=== PATIENT | male | born 1965 | race Caucasian/White ===

== ENCOUNTER 2020-06-01 19:44 | Emergency (ER) | payer OTHER, SELFPAY ==
[2020-06-01 19:55] VITALS: BP 145/81; PULSE 81; RESP 18; TEMP 36.1; O2SAT 97; BMI 26.1
--- NOTE | 2020-06-01 20:27 | ED_ITS ---
HPI - Skin/Abscess/Foreign Bdy General Chief complaint: Skin/Abscess/Foreign Body Stated complaint: rash Time Seen by Provider: 06/01/20 20:22 Source: patient Mode of arrival: ambulatory Limitations: no limitations History of Present Illness HPI narrative: Patient presents to ED for generalized itchy rash since yesterday. Patient does not have any known allergies. Patient states he was staying at a hotel last night and this may be due to the new soap or lotion. Patient states he rash on upper extremities, chest, and lower extremities. Patient denies any swelling of lips, shortness of breath, swelling of tongue, or chest pain. Patient denies any fever or chills. Related Data Previous Rx's Medication Instructions Recorded diphenhydramine HCl [Benadryl] 25 mg PO TID PRN #30 cap 06/01/20 famotidine [Pepcid] 20 mg PO BID #20 tab 06/01/20 prednisone 40 mg PO DAILY #10 tab 06/01/20 Allergies Allergy/AdvReac Type Severity Reaction Status Date / Time naproxen Allergy Unknown rash Verified 06/01/20 20:00 PT does not remeber allergy Allergy Unknown Unknown Uncoded 06/01/20 20:00 Review of Systems Review of Systems: itchy rash Yes all other systems are reviewed and are ne gative Constitutional: Constitutional: Reports as per HPI and Reports no additional constitutional complaints Eyes: Eyes: Reports as per HPI and Reports no additional eye complaints ENT: Reports system reviewed and no additional complaints, except as documented and Reports as per HPI Cardiovascular: Cardiovascular: Reports as per HPI and Reports no additional cardiovascular complaints Respiratory: Respiratory: Reports as per HPI and Reports no additional respiratory complaints Gastrointestinal: Gastrointestinal: Reports as per HPI and Reports no additional gastrointestinal complaints Genitourinary: Genitourinary: Reports no additional male genitourinary complaints and Reports as per HPI Musculoskeletal: Musculoskeletal: Reports no additional musculoskeletal complaints and Reports as per HPI Neurologic: Reports system reviewed and no additional complaints, except as documented and Reports as per HPI Psychiatric: Psychiatric: Reports no additional psychiatric complaints and Reports as per HPI [facility] Social History Social History Advance Directives: No Advance Directives Information Provided: Yes Physical Exam Vital Signs: Vital Signs: Last Vital Signs Temp 96.9 F 06/01/20 19:55 Pulse 81 06/01/20 19:55 Resp 18 06/01/20 19:55 BP 145/81 H 06/01/20 19:55 Pulse Ox 97 06/01/20 19:55 Body Mass Index 26.1 Const: General: cooperative, healthy appearing, comfortable, no acute distress, well developed, awake and Physically active Orientation/consciousness: patient oriented x3 HENMT: Other: negative for any facial swelling, lip swelling, tongue swelling, or uvula swelling. Patient is speaking in full sentences. Head: Yes normal to inspection, Yes No palpable skull fracture present, Yes normocephalic, Yes atraumatic, No Acrocyanosis present, No Meléndez's sign, No contusion, No cranial bruits, No hematoma, No laceration, No palpable skull fracture, No raccoon eyes, No scalp tenderness, No Temporal artery tenderness present and No periorbital ecchymosis Eyes: General: appearance normal, both eyes and all related structures Neck: Neck: Yes normal visual inspection, Yes full ROM, Yes no lymphadenopathy, Yes no meningeal signs, Yes trachea midline, Yes supple and No tender Chest: Other: Positive for uticaria rash Chest palpation & inspection: normal inspection of the chest and normal palpation of entire chest wall Resp: Effort & Inspection: normal respiratory effort and able to speak in complete sentences Auscultation: clear to auscultation bilaterally Cardio: Jugular venous distension: no JVD Heart sounds: S1 normal heart sound present and S2 normal heart sound present GI: Other: uticarial rash Inspection: Yes normal to inspection and No abdominal wall ecchymosis Palpation (GI): Soft to palpation, not firm, nontender, no guarding and not rigid : General: No CVA tenderness and Yes no CVA tenderness Back/Spine/Pelvis: Back: no CVA tenderness, No CVA tenderness and No back tenderness Skin: Other: positive for uticaria rash on chest, abdomen, upper extremities and lower extremities. Neuro: General: patient oriented x3, gait normal, no meningeal signs and CN's II-XI intact bilaterally Cranial nerves: Yes CN's II-XII intact bilaterally Extrem: General: Yes normal to inspection and Yes full ROM Psych: Appearance: grossly normal, well kempt and not disheveled Course Course Course Narrative: History physical exam indicated to uticarial rash. patient has allerigc reaction Reevaluation(s) Reevaluation #1: Patient is driving. Patient will be charged Benadryl, prednisone, Pepcid MDM - Skin/Abscess/Foreign Bdy MDM Narrative Medical decision making narrative: Uticaria rash Discharge Plan Discharge Clinical Impression: Urticarial rash, Allergic reaction Patient Disposition: Home, Self-Care Instructions: General Allergic Reaction (ED) Additional Instructions: return to the ED immediately for chest pain, shortness of breath, swelling of lips, swelling of tongue, fever, chills, sensation of throat closing, or any other concerning symptoms. Prescriptions: New diphenhydramine HCl [Benadryl] 25 mg capsule 25 mg PO TID PRN (Reason: allergic reaction) Qty: 30 RF: 0 prednisone 20 mg tablet 40 mg PO DAILY Qty: 10 RF: 0 famotidine [Pepcid] 20 mg tablet 20 mg PO BID Qty: 20 RF: 0 Referrals: Siobhan Estrada MD [Primary Care Provider] - 2 days (Allergic reaction) Interventions: ED Discharge Assessment Last Done: 06/01/20 21:11 Discharge Date/Time: 06/01/20 21:13 Print Language: Bhutanese
== END 2020-06-01 21:13 | disposition home or self-care (01) ==
PROVIDERS: Emergency Provider Internal Medicine; PCP Internal Medicine
DX: L50.0 Allergic urticaria (principal); Z79.899 Other long term (current) drug therapy
CPT/HCPCS: 99283

== ENCOUNTER 2022-10-20 11:19 | Outpatient (REF) | payer OTHER, SELFPAY ==
[2022-10-20 11:41] LABS: MANUAL DIFF FLAG NO
[2022-10-20 12:10] LABS: Basophils Absolute Auto 0.1 X10*3/uL (0.0-0.2); Basophils Percent Auto 0.6 % (0-2); Eosinophils Absolute Auto 0.1 X10*3/uL (0.0-0.4); Eosinophils Percent Auto 1.5 % (0-4); Hematocrit 49.7 % (42.0-52.0); Hemoglobin 16.7 g/dl (14.0-18.0); Imm Gran Abs Auto 0.02 X10*3/uL (0.00-0.03); Imm Gran Pct Auto 0.2 % (0.0-0.4); Lymphocytes Absolute Auto 2.9 X10*3/uL (1.2-4.9); Lymphocytes Percent Auto 33.1 % (20-40); Mean Corpuscular HGB Conc 33.6 g/dl (31.0-36.0); Mean Corpuscular Hemoglobin 30.1 pg (27.0-33.0); Mean Corpuscular Volume 89.5 fL (80.0-98.0); Mean Platelet Volume 10.3 fL (9.4-12.4); Monocytes Absolute Auto 0.5 X10*3/uL (0.1-1.2); Monocytes Percent Auto 5.7 % (2-11); Neutrophils Absolute Auto 5.1 x10*3/uL (2.0-8.3); Neutrophils Percent Auto 58.9 % (45-73); Platelet Count 297 X10*3/uL (160-400); Red Blood Count 5.55 X10*6/uL (4.60-5.80); Red Cell Distribution Width 12.8 % (11.0-16.0); White Blood Count 8.6 X10*3/uL (4.8-10.8)
[2022-10-20 13:13] LABS: Alanine Aminotransferase 24 U/L (0-40); Albumin Level 4.2 g/dL (3.5-5.0); Alkaline Phosphatase 108 U/L (39-117); Anion Gap 11 (12-20); Aspartate Amino Transferase 17 U/L (5-37); Bilirubin Total 0.6 mg/dL (0.0-1.0); Blood Urea Nitrogen 14 mg/dL (9-16); Calcium 9.4 mg/dL (8.4-10.2); Carbon Dioxide 29 mmol/L (22-29); Chloride 104 mmol/L (96-108); Cholesterol 223 mg/dL; Estimated Glomerular Filt Rate > 60; Glucose Random 90 mg/dL (60-115); HDL Cholesterol 37 mg/dL; LDL Cholesterol Calculated 157 mg/dl; Sodium 139 mmol/L (135-145); TSH reflex Free T4 1.04 uIU/mL (0.32-4.0); Total Protein 7.2 g/dL (6.5-8.0); Triglycerides 147 mg/dL
[2022-10-20 13:18] LABS: Estimated Average Glucose 108 mg/dL; Hemoglobin A1c % 5.4 %
== END 2022-10-20 11:20 | disposition home or self-care (01) ==
LOC: HO.LAB 11:19
PROVIDERS: Visit Provider Nurse Practitioner Family
DX: E78.00 Pure hypercholesterolemia, unspecified (principal); F17.200 Nicotine dependence, unspecified, uncomplicated; Z13.1 Encounter for screening for diabetes mellitus; Z13.0 Encounter for screening for diseases of the blood and blood-forming organs and certain disorders involving the immune mechanism; Z13.21 Encounter for screening for nutritional disorder; Z13.29 Encounter for screening for other suspected endocrine disorder
CPT/HCPCS: 36415; 80053; 80061; 82306; 83036; 84443; 85025

== ENCOUNTER 2023-01-12 15:18 | Outpatient (AMB) | payer OTHER, SELFPAY ==
--- NOTE | 2023-01-12 15:29 | A.OFFPC_ITS ---
Vital Signs 01/12/23 15:35 01/12/23 16:10 Height 5 ft 7 in Weight 194 lb BMI 30.4 BP 140/80 H 128/80 Blood Pressure Location Rt brachial Lt brachial Position Sitting Sitting Pulse 80 Pulse Source Pulse Oximeter Pulse Oximetry (%) 98 Intake Visit Reasons: Annual PE Intake Note: pt is here for annual exam Rehab Office Coordinator Required: No Accompanied by: Self / Same As Patient Allergies naproxen Allergy (Unknown, Verified 01/12/23 15:29) rash PT does not remeber allergy Allergy (Unknown, Uncoded 01/12/23 15:29) Unknown Medication List - Last Reconciled 01/12/23 by Vee Ibarra MD cholecalciferol (vitamin D3) 50 mcg PO DAILY Tobacco use date assessed: 01/12/23 Dental Screening Dental Screen Date: 01/12/23 Did you have a dental visit in the last 12 months?: No Did you have a dental problem in the last 6 months where you did not have access to dental care?: No Was dental information given to patient?: Yes HPI Annual PE HPI Details 57-year-old obese male smoker with hypercholesterolemia coming in for physical exam PFSH Medical History Major depressive disorder Pure hypercholesterolemia Smoker Surgical History H/O inguinal hernia repair Family History Mother Asthma Sister Breast CA Social History (Updated 01/12/23 @ 16:15 by Vee Ibarra MD) Household Members: Family Household Members Other:: lives with sister in [place] Housing: Apartment Alcohol intake: never Patient Tobacco Use Status: Former Tobacco user (09/2022) Tobacco use type: Cigarette Cigarettes Per Day: 6 Years Smoked: started smoking 1987. 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 Bull L. ParvezMarge phillips, Florentin Leblanc and colleagues, with an educational andrew from [employer]. Review of Systems Const Denies poor appetite and Denies weakness Eyes Denies no additional complaints ENT Reports Normal hearing present, Denies dizziness, Denies nasal congestion, Denies tinnitus and Denies sore throat Card Denies chest pain, Denies syncope, Denies rapid heart rate and Denies dyspnea Resp Denies cough and Denies dyspnea GI Denies change in stool character, Reports constipation, Denies diarrhea, Denies nausea and Denies vomiting Denies dysuria and Denies urinary frequency Neuro Reports Normal hearing present, Denies confusion, Denies dizziness, Denies syncope and Denies weakness Psych Denies confusion Physical exam (Primary Care) Vital Signs: Last Vital Signs Pulse 80 01/12/23 15:35 BP 140/80 H 01/12/23 15:35 Pulse Ox 98 01/12/23 15:35 BMI result Body Mass Index 30.4 Tobacco/Smoking Status: Tobacco use Status Tobacco use date assessed 01/12/23 01/12/23 15:40 Patient Tobacco Use Status Former Tobacco user (09/2022) 01/12/23 15:40 Tobacco use type Cigarette 01/12/23 15:30 e-Cigarette/Vaping Use Never Used 01/12/23 15:30 Thrive Assessment: Date of Thrive Assessment Date Thrive assessed 08/04/22 01/12/23 15:30 Const General: No confusion Orientation/consciousness: No confusion HENMT Head: Yes normocephalic Ears: external ears normal and TM's normal bilaterally Face and sinus: Yes normal facial exam Mouth: moist mucous membranes Throat: Yes tonsils normal Eyes Conjunctivae: conjunctivae normal Pupils: Equal, round and reactive pupils present and Pupil accommodation reflex normal Direct Ophthalmoscopy: normal light reflex Neck Neck: No lymphadenopathy Thyroid: Thyroid normal Chest Chest palpation & inspection: normal inspection of the chest Resp Effort & Inspection: normal respiratory effort and no audible wheezes Auscultation: clear to auscultation bilaterally, no crackles, no wheezes and lung sounds not diminished Cardio Rate: regular rate Rhythm: regular rhythm Peripheral pulses: radial pulses present and dorsalis pedis present GI Other: colon test recently Palpation (GI): no masses Auscultation: normal bowel sounds and normoactive bowel sounds Rectal Exam - Male: Yes deferred Male General Exam: Yes normal external exam Skin General skin exam: no rashes or lesions noted Rashes: no rashes Neuro General: No confusion Cranial nerves: Yes Equal, round and reactive pupils present and Yes Normal hearing present Cognition (Neuro): normal cognition Gait exam (Neuro): Normal gait present Motor exam (neuro): 5/5 motor strength present throughout Deep tendon reflexes (DTR's): Right brachioradialis reflex intensity grade: 2+, Left brachioradialis reflex intensity grade: 2+, Right patellar reflex intensity grade: 2+ and Left patellar reflex intensity grade: 2+ Extrem General: No edema Assessment and Plan Assessment & Plan (1) Annual physical exam: Code(s): Z00.00 - Encounter for general adult medical examination without abnormal findings (2) Tobacco abuse: Comment: STOPPED smoking September 2022 Code(s): Z72.0 - Tobacco use Plan: Stopped 09/2022 (3) Pure hypercholesterolemia: Code(s): E78.00 - Pure hypercholesterolemia, unspecified Plan: Avoid fried foods, chicken skin, eggs, butter margarine, pastries and meat. Be it pork or beef they have a lot of cholesterol LDL goal of less than 130 and triglyceride of less than 150 (4) Obesity (BMI 30-39.9): Code(s): E66.9 - Obesity, unspecified Plan: Diet and exercise Orders: Orders Comprehensive Met. Panel 3 Months E78.00 - Pure hypercholesterolemia, unspecified Liver Panel 3 Months E78.00 - Pure hypercholesterolemia, unspecified, R79.89 - Other specified abnormal findings of blood chemistry Vitamin D 25-OH Total 3 Months E55.9 - Vitamin D deficiency, unspecified Referrals Thoracic Surgery Referral Z72.0 - Tobacco use Medications: New simvastatin 5 mg PO BEDTIME 30 tabs 3RF E78.00 - Pure hypercholesterolemia, unspecified Coding Level of Care Code Est Pt Prev Care 40-64y(48644) Diagnoses Annual physical exam Z00.00 Tobacco abuse Z72.0 Pure hypercholesterolemia E78.00 Obesity (BMI 30-39.9) E66.9
[2023-01-12 15:35] VITALS: BP 140/80; PULSE 80; O2SAT 98; BMI 30.4
[2023-01-12 16:10] VITALS: BP 128/80
== END 2023-01-12 16:32 | disposition home or self-care (01) ==
PROVIDERS: PCP Internal Medicine; Visit Provider Internal Medicine
DX: Z00.00 Encounter for general adult medical examination without abnormal findings (principal); Z72.0 Tobacco use; Z68.30 Body mass index [BMI] 30.0-30.9, adult; E66.9 Obesity, unspecified; E78.00 Pure hypercholesterolemia, unspecified
CPT/HCPCS: 99396

== ENCOUNTER 2023-03-09 13:42 | Outpatient (AMB) | payer OTHER, SELFPAY ==
--- NOTE | 2023-03-09 08:47 | MHC.OFFVIS ---
Intake Intake Visit Reasons: LDCT SD Allergies naproxen Allergy (Unknown, Verified 01/12/23 15:29) rash PT does not remeber allergy Allergy (Unknown, Uncoded 01/12/23 15:29) Unknown HPI LDCT SD HPI Details Initial visit for this 57yo former smoker with a 35PYH. Patient has been smoking since age 29 for 28 years at 1ppd. Recently quit 08/2022. . Denies marijuana use. Notes social second hand smoke exposure. Denies exposure to chemicals or substances like asbestos. . Denies known family history of lung cancer. Denies personal history of cancers. Denies chest CT in last year. . Denies recent travel outside the [place]. Denies recent respiratory illness or recent hospitalization for respiratory issues. Denies testing positive for COVID. Admits receiving COVID Vaccine. x6. . Denies fever, chills, new/worsening cough, hemoptysis, hoarseness or dysphagia. Denies significant chest pain, significant dyspnea or unintentional weight loss. Patient Lung Cancer Screening Questionnaire reviewed with patient by provider. . Shared Decision Making Completed. Patient meets criteria. Discussed in detail with patient, the risk vs benefit of LDCT screening. Patient consents to proceed with scan. Discussed and encouraged continued smoking cessation. [facility] Medical History (Updated 03/09/23 @ 13:47 by Deja Cleveland PA-C) Nicotine dependence, cigarettes, uncomplicated Major depressive disorder Pure hypercholesterolemia Surgical History (Updated 03/09/23 @ 13:49 by Deja Cleveland PA-C) History of left inguinal hernia repair (~2007) Family History Mother Asthma Sister Breast CA Social History (Updated 03/09/23 @ 13:54 by Deja Cleveland PA-C) Household Members: Family Household Members Other:: lives with sister in [place] Housing: Apartment Alcohol intake: never Patient Tobacco Use Status: Former Tobacco user (09/2022) Quit Date: 08/2022 Tobacco use type: Cigarette Cigarettes Per Day: 6 Years Smoked: (onset 29yo, 1ppd x 28yrs, 2pyh - quit 08/2022) e-Cigarette/Vaping Use: Never Used service: No Current occupational status: employed Current occupation: [employer], [employer] Current occupational exposures/hazards: Yes (pt works in a [employer] ) Cognitive needs: No Hearing needs: No Vision needs: No Assessment & Plan Assessment & Plan (1) Nicotine dependence, cigarettes, uncomplicated: Comment: (onset 29yo, 1ppd x 29yrs, 25pyh, quit 08/2022) Code(s): F17.210 - Nicotine dependence, cigarettes, uncomplicated Plan: - SDM visit completed today in office. - Patient meets criteria for LDCT for lung cancer screening purposes and is asymptomatic. - Smoking cessation counseling offered. Patients can always call [phone]. - Will arrange for a LDCT scan of the chest for screening purposes at [facility]. - Risks, benefits, and alternatives were discussed in detail and the patient agrees to proceed. - Risks discussed include but are not limited to: radiation exposure, anxiety during testing and while awaiting results, false negatives, false positives and possibility of additional intervention such as further imaging or surgical procedures for benign disease. - Benefits are obviously detection of lung cancer at an early stage which can lead to improved outcomes. - Discussed the importance of screening program compliance with adherence to yearly LDCT scan as scheduled - or sooner interval scans for personalized screening regimen. - Discussed follow up plan. Our office will send a letter discussing results and if needed set up phone call and office visit based on CT findings. - Patient educated on results categorization and the management decisions for suspicious findings potentially found on the screening LDCT scan. Any patient with a Lung RADS score of 3 or 4 will be reviewed by a multidisciplinary team at [facility] to form a plan of action in regards to scan findings. - If further work up is warranted for a suspicious lung finding this will be followed by the Lung Cancer Screening program in conjunction with the Thoracic Surgery Department at [facility]. - A copy of the office note and LDCT will be sent to the patient's PCP - as well as documentation on any associated further plans of care. - Incidental findings on LDCT are the PCP's responsibility. These findings are indicated with an S finding on the LDCT Assessment. A note discussing the findings will be sent to the PCP who is then responsible for further management. - All questions answered.? Coding Level of Care Code Lung Cancer Screening G0296 Diagnoses Nicotine dependence, cigarettes, uncomplicated F17.210
== END 2023-03-09 14:27 | disposition home or self-care (01) ==
PROVIDERS: PCP Internal Medicine; Visit Provider Physician Assistant Medical
DX: F17.210 Nicotine dependence, cigarettes, uncomplicated (principal)
CPT/HCPCS: G0296

== ENCOUNTER 2023-03-09 13:53 | Outpatient (REF) | payer OTHER, SELFPAY ==
--- NOTE | ~2023-03-09 | CT_ITS ---
EXAMINATION: CT CHEST SCREENING CLINICAL INFORMATION: 39 pack year history. Quit smoking 6 months ago. COMPARISON: Previous chest x-ray April 2017 TECHNIQUE: Multidetector volumetric CT imaging of the chest is performed without contrast using low dose technique. Additional 2D coronal and sagittal reformatted images and axial 3D maximum intensity projection (MIP) images are generated on the CT workstation. This CT examination was performed using dose optimization techniques as appropriate, variously including the following: *Automated exposure control *Adjustment of mA and/or kV according to patient size (this includes techniques or standardized protocols for targeted exams where dose is matched to indication/reason for exam; i.e. extremities or head) *Use of iterative reconstruction technique DLP: 59 mGy-cm FINDINGS: LUNGS: Question 3 mm perivascular nodule in the right upper lobe axial image 119 series 5. The lungs are otherwise clear. No endobronchial or endotracheal lesion. MEDIASTINUM: The mediastinum is normal. CORONARY ARTERY CALCIFICATION: Mild. PLEURA: There is no pleural effusion. No pleural mass or thickening. AXILLA: No lymphadenopathy. UPPER ABDOMEN: Unremarkable OSSEOUS STRUCTURES: Unremarkable. CT/CT lung screening IMPRESSION: Question small 3 mm perivascular right upper lobe nodule. ASSESSMENT: Lung-RADS category 2: Benign RECOMMENDATION: Annual low-dose chest CT follow-up recommended
== END 2023-03-09 13:54 | disposition home or self-care (01) ==
LOC: HO.CT 13:53
PROVIDERS: PCP Internal Medicine; Visit Provider Physician Assistant Medical
DX: Z12.2 Encounter for screening for malignant neoplasm of respiratory organs (principal); Z87.891 Personal history of nicotine dependence
CPT/HCPCS: 71271; G0296

== ENCOUNTER 2023-04-06 09:20 | Outpatient (REF) | payer OTHER, SELFPAY ==
[2023-04-06 12:29] LABS: Alanine Aminotransferase 19 U/L (0-40); Albumin Level 4.3 g/dL (3.5-5.0); Alkaline Phosphatase 95 U/L (39-117); Anion Gap 14 (12-20); Aspartate Amino Transferase 17 U/L (5-37); Bilirubin Direct 0.2 mg/dL (0.0-0.5); Bilirubin Total 0.6 mg/dL (0.0-1.0); Blood Urea Nitrogen 17 mg/dL (9-16); Calcium 9.7 mg/dL (8.4-10.2); Carbon Dioxide 25 mmol/L (22-29); Chloride 102 mmol/L (96-108); Estimated Glomerular Filt Rate > 60; Glucose Random 90 mg/dL (60-115); Potassium 4.3 mmol/L (3.3-5.1); Sodium 137 mmol/L (135-145)
== END 2023-04-06 09:21 | disposition home or self-care (01) ==
LOC: HO.LAB 09:20
PROVIDERS: PCP Internal Medicine; Visit Provider Internal Medicine
DX: E78.00 Pure hypercholesterolemia, unspecified (principal); R79.89 Other specified abnormal findings of blood chemistry; E55.9 Vitamin D deficiency, unspecified
CPT/HCPCS: 36415; 80053; 82248; 82306

== ENCOUNTER 2023-04-27 13:48 | Outpatient (AMB) | payer OTHER, SELFPAY ==
[2023-04-27 14:07] VITALS: BP 124/82; PULSE 68; O2SAT 100; BMI 29.6
--- NOTE | 2023-04-27 14:07 | A.OFFPC_ITS ---
Vital Signs 04/27/23 14:07 Height 5 ft 7 in Weight 189 lb BMI 29.6 BP 124/82 Blood Pressure Location Lt brachial Position Sitting Pulse 68 Pulse Source Pulse Oximeter Pulse Oximetry (%) 100 Oxygen Delivery Method Room Air Intake Visit Reasons: cholesterol Intake Note: Patient is here to follow up on cholesterol. Wood Getter Required: No Accompanied by: Self / Same As Patient Allergies naproxen Allergy (Unknown, Verified 01/12/23 15:29) rash PT does not remeber allergy Allergy (Unknown, Uncoded 01/12/23 15:29) Unknown Medication List - Last Reconciled 04/27/23 by Vee Ibarra MD cholecalciferol (vitamin D3) 50 mcg PO DAILY simvastatin 5 mg PO BEDTIME Tobacco use date assessed: 01/12/23 Dental Screening Dental Screen Date: 04/27/23 Did you have a dental visit in the last 12 months?: Yes Did you have a dental problem in the last 6 months where you did not have access to dental care?: No Was dental information given to patient?: Patient has dentist HPI cholesterol HPI Details 58-year-old smoker overweight male with hypercholesterolemia last seen in December 2022 patient is here for follow-up. Colonoscopy is up-to-date. Had a CT scan done February 2023 question of small 3 mm perivascular right upper lobe nodule. Will CT requested [facility] Medical History (Updated 04/27/23 @ 15:03 by Vee Ibarra MD) Tobacco abuse Nicotine dependence, cigarettes, uncomplicated Major depressive disorder Pure hypercholesterolemia Surgical History History of left inguinal hernia repair (~2007) Family History Mother Asthma Sister Breast CA Social History Household Members: Family Household Members Other:: lives with sister in [place] Housing: Apartment Alcohol intake: never Patient Tobacco Use Status: Former Tobacco user (09/2022) Quit Date: 08/2022 Tobacco use type: Cigarette Cigarettes Per Day: 6 Years Smoked: (onset 29yo, 1ppd x 28yrs, 2pyh - quit 08/2022) e-Cigarette/Vaping Use: Never Used service: No Current occupational status: employed Current occupation: [employer] Current occupational exposures/hazards: Yes (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 Bull Hannon, Marge House, Florentin Leblanc and colleagues, with an educational andrew from [employer]. Physical exam (Primary Care) Vital Signs: Last Vital Signs Pulse 68 04/27/23 14:07 BP 124/82 04/27/23 14:07 Pulse Ox 100 04/27/23 14:07 Oxygen Delivery Method Room Air 04/27/23 14:07 BMI result Body Mass Index 29.6 Tobacco/Smoking Status: Tobacco use Status Tobacco use date assessed 01/12/23 04/27/23 14:14 Patient Tobacco Use Status Former Tobacco user (09/2022) 04/27/23 14:14 Tobacco use type Cigarette 04/27/23 14:14 e-Cigarette/Vaping Use Never Used 04/27/23 14:14 Thrive Assessment: Date of Thrive Assessment Date Thrive assessed 08/04/22 04/27/23 14:14 Const General: alert; No acute distress Eyes Conjunctivae: conjunctivae normal Resp Auscultation: clear to auscultation bilaterally Cardio Rate: regular rate Rhythm: regular rhythm GI Inspection: Yes normal to inspection Extrem General: Yes normal to inspection and No edema Office Procedures Flu Questionnaire Does the patient have a severe egg allergy?: No Does the patient have severe life threatening allergies?: No Does the patient have a fever or illness today?: No Has the patient ever had Guillain-[place] Syndrome?: No Has the patient ever had any past reaction to a flu shot?: No Immunizations flu vacc [id number] 6mos up(PF) 60 mcg(15 mcgx4)/0.5 mL IM syringe Performing Provider: Vee Ibarra MD [facility] Administered by: ADNER Luna on 04/27/23 14:17 Dose Route Admin Location Dispensed Lot Number Expiration Date NDC Material Requirements Worker 0.5 mL IM Left Deltoid 0.5 mL [id number] 12/23/23 [id number] PacketSled VIS Given Date VIS Provided VIS Publication Date 04/27/23 Single Vaccine 21 Eligibility Eligibility Date Funding Source Not [facility] Eligible 04/27/23 Private Assessment and Plan Assessment & Plan (1) Pure hypercholesterolemia: Code(s): E78.00 - Pure hypercholesterolemia, unspecified Plan: Avoid fried foods, chicken skin, eggs, butter margarine, pastries and meat. Be it pork or beef they have a lot of cholesterol LDL goal of less than 130 and triglyceride of less than 150 patient is on simvastatin 5 mg at bedtime (2) Overweight: Code(s): E66.3 - Overweight Plan: Diet and exercise (3) Tobacco abuse: Comment: Stopped 07/2022 Code(s): Z72.0 - Tobacco use Plan: Patient is strongly advised to stop smoking. Up-to-date with CT scan Orders: Orders Comprehensive Met. Panel Today E78.00 - Pure hypercholesterolemia, unspecified Influenza [id number] Immunization Today Z23 - Encounter for immunization Lipid Panel Today E78.00 - Pure hypercholesterolemia, unspecified Medications: Refilled simvastatin 5 mg PO BEDTIME 30 tabs 3RF E78.00 - Pure hypercholesterolemia, unspecified cholecalciferol (vitamin D3) 50 mcg PO DAILY 90 caps 3RF E78.00 - Pure hypercholesterolemia, unspecified simvastatin 5 mg PO BEDTIME 30 tabs 3RF E78.00 - Pure hypercholesterolemia, unspecified Coding Level of Care Code Est Pt Level 4 (80457) Diagnoses Pure hypercholesterolemia E78.00 Overweight E66.3 Tobacco abuse Z72.0
== END 2023-04-27 15:10 | disposition home or self-care (01) ==
PROVIDERS: PCP Internal Medicine; Visit Provider Internal Medicine
DX: E78.00 Pure hypercholesterolemia, unspecified (principal); E66.3 Overweight; Z72.0 Tobacco use; Z23 Encounter for immunization
CPT/HCPCS: 90471; 90686; 99214